=== PATIENT | female | born 1980 | race Asian ===

== ENCOUNTER → 2018-07-05 | Outpatient (CLI) | END | disposition home or self-care (01) ==

== ENCOUNTER 2018-10-07 05:19 | Inpatient (IN) | payer OTHER ==
[2018-09-27 15:56] VITALS: BMI 25.6
[~2018-10-07] VITALS: Ht 154.9 cm; Wt 61.6 kg
[2018-10-07] VITALS (31 sets, daily range): BP systolic 73–106; BP diastolic 41–58; PULSE 62–77; RESP 16–25; Ht 154.9 cm; Wt 61.6 kg
[~2018-10-07 05:19] MED LIST: BUPIVACAINE 0.5% (SDV) 30 ML, morphine SULFATE (PF) 8 MG, EPINEPHrine 0.3 MG, KETOROLAC... IRR SCH
--- NOTE | 2018-10-07 05:54 | HPN ---
Date/Time of Note Date/Time of Note DATE: 10/07/18 TIME: 05:54 Interval H&P Admission Note Pt. seen H&P reviewed: No system changes AMANDA SOLARES MD Oct 07, 2018 05:54
--- NOTE | 2018-10-07 05:56 | OPR ---
Date/Time of Note Date/Time of Note DATE: 10/07/18 TIME: 05:54 Operative Report Procedure Date: Oct 07, 2018 Preoperative Diagnosis Left hip primary arthritis Postoperative Diagnosis Left hip primary arthritis Operation/Procedure Performed 1. Left total hip arthroplasty 2. Injection of PRP Surgeon see signature line Owner/Operator Krishan Kelley PA-C Second Owner/Operator: ZARIA BRISCOE Anesthesia Type: general Estimated Blood Loss: 150 - 200 ml's Transfusion none Specimen none Grafts/Implants none Complications none Pt Condition Post Procedure: stable Disposition: PACU Procedure Description Owner/Operator Surgeon: Mr Kelley was integral to the positioning and assistance necessary in the exposure of the hip joint as well as protection of the neurovascular structures. In my opinion at the assistance offered by a surgical services director is insufficient and Mr. Loera should be compensated for his time. PROCEDURE IN DETAIL: Following the administration of general endotracheal anesthesia supplemented with a spinal anesthetic, the patient was placed in the supine position. The antecubital fossa on the right was prepped and 60 cc of blood were aspirated. Under sterile conditions, the blood was passed off to the claim representative from the company who prepared the PRP solution. The left lower extremity was then prepped and draped in the usual sterile fashion. A mold chipper radiograph was obtained for preliminary limb length and femoral size as well as acetabular size. A lateral incision was then made exposing the tensor fascia the fascia was incised the tensor was retracted laterally and the vessels were cauterized. The anterior capsule was then identified and prepared. A capsulectomy was then performed and the femoral head was then evaluated. Severe arthritic changes were noted. A femoral head cut was then made in the appropriate degree of version and inclination. Following dislocation, severe arthritic changes were noted with very certain severe cystic changes in the femoral head. The acetabulum was then exposed and a capsulectomy and labrectomy were completed. The central portion was then entered and serially reamed up to the 47 mm size. A Depuy [place] cup which was 48 mm, with a standard liner was then fit into position with solid fixation. A 30 mm screw was used for additional fixation. Attention was then directed to the femur, the femur was exposed and prepared. The canal was entered and serially reamed up to the size 3. The femoral canal was then thoroughly irrigated and the PRP solution was then instilled into the femoral canal. A size 3 Depuy Actis stem was then inserted with solid fixation. A 28 mm, +1.5 mm femoral head, which was ceramic was then inserted. The leg was taken through full range of motion with no evident instability. In addition, radiographs revealed excellent position with reproduction of the limb lengths within a millimeter. The wound was irrigated thoroughly. The wound was then closed in layers and a Prenio for the final cover. This was watertight. Estimated blood loss was procedure was 200 cc. Postoperative radiographs will be obtained in the recovery room. AMANDA SOLARES MD Oct 07, 2018 05:56
[2018-10-07] MEDS ORDERED: DEXAMETHASONE 1 MG TAB PO ONE (06:00)
[2018-10-07] MEDS ORDERED: CEFAZOLIN 2 GM/50 ML (PMX) 50 ML IVPB ONE (06:00)
[2018-10-07] MEDS ORDERED: TRANEXAMIC ACID 1GM/100ML(PMX) 100 ML IVPB ONE (06:00)
[2018-10-07] MEDS ORDERED: GABAPENTIN 300 MG CAP PO ONE (06:00)
[2018-10-07] MEDS ORDERED: LACTATED RINGER'S 1,000 ML IV SCH (06:30)
--- NOTE | 2018-10-07 06:34 | PREAC ---
Date/Time of Note Date/Time of Note DATE: 10/07/18 TIME: 06:34 Anesthesia Eval and Record Evaluation Time Pre-Procedure Interview DATE: 10/07/18 TIME: 06:34 Age 38 Sex female NPO: 8 hrs Preoperative diagnosis L Hip OA Planned procedure L THR Past Medical History Past Medical History: None Surgery & Anesthesia Issues No known issue Meds Anticoagulation: No Beta Leon within 24 hr: No Reason Beta Leon not given: Pt. not on B-Leon No Active Prescriptions or Reported Meds Current Medications Sodium Chloride/ Tranexamic Acid INTRA-OP ONCE IRR ; Start 10/07/18 at 07:00; Stop 10/07/18 at 07:01 Bupivacaine HCl/ Morphine Sulfate/ Epinephrine/ Ketorolac Tromethamine/ C lonidine/Sodium Chloride/ Vancomycin HCl INTRA-OP IRR ; Start 10/06/18 at 06:30; Status UNV Lactated Ringer's 1,000 ml @ 30 mls/hr Q24H IV ; Start 10/07/18 at 06:30 Meds reviewed: Yes Allergies Coded Allergies: aspirin (Verified Allergy, Severe, EYE LID EDEMA, 10/07/18) Sulfa (Sulfonamide Antibiotics) (Verified Allergy, Intermediate, rash, 10/07/18) sulfamethoxazole (Verified Allergy, Mild, rash, 10/07/18) trimethoprim (Verified Allergy, Mild, rash, 10/07/18) Allergies Reviewed: Yes Labs/Studies Labs Reviewed: Reviewed by anesthesiologist test: Negative Pre-procedure Exam Last vitals Vital Signs Date Temp Pulse Resp B/P (MAP) Pulse Ox O2 O2 Flow FiO2 Time Delivery Rate 10/07/18 98.3 77 18 104/57 98 Room Air 06:06 (73) Airway: Adequate mouth opening, Adequate thyromental dist Mallampati: Mallampati II Teeth: Normal Lung: Normal Heart: Normal ASA Physical Status ASA physical status: 2 Emergency: None Planned Anesthetic General/MAC: ETT Neuraxial: Spinal Planned Pain Management Sub-arachniod narcotics Pre-operative Attestations Prior to commencing anesthesia and surgery, the patient was re-evaluated, there was verification of: *The patient's identity *The results of appropriate recent lab work and preoperative vital signs *The above evaluation not changing prior to induction *Anesthetic plan, risk benefits, alternative and complications discussed with patient/family; questions answered; patient/family understands, accepts and wishes to proceed. TYLER LEBRON Oct 07, 2018 06:34
[2018-10-07] MEDS ORDERED: morphine SULFATE/PF (10 MG/10 ML) INJ ONE (06:45)
[2018-10-07] MEDS ORDERED: MIDAZOLAM 1 MG/ML 2 ML INJ ONE (06:45)
[2018-10-07] MEDS ORDERED: ONDANSETRON 4 MG INJ IV PRN (07:00)
[2018-10-07] MEDS ORDERED: MEPERIDINE 25 MG INJ IV PRN (07:00)
[2018-10-07] MEDS ORDERED: HYDROmorphONE 1 MG/5 ML IV SYRINGE IV PRN ×3 (07:00)
[2018-10-07] MEDS ORDERED: DESFLURANE 15 MIN ONE (07:00)
[2018-10-07] MEDS ORDERED: ROCURONIUM 50 MG INJ ONE ×2 (07:00→07:39)
[2018-10-07] MEDS ORDERED: METOCLOPRAMIDE 10 MG INJ IV PRN (07:00)
[2018-10-07] MEDS ORDERED: CEFAZOLIN 1 GM INJ ONE (07:00)
[2018-10-07] MEDS ORDERED: DIPHENHYDRAMINE 50 MG INJ IV PRN ×2 (07:00→09:00)
[2018-10-07] MEDS ORDERED: ALBUTEROL 0.083% (NEB) 2.5 MG/3 ML AMP HHN PRN (07:00)
[2018-10-07] MEDS ORDERED: FENTAnyl 50 MCG/ML VIAL IV PRN ×2 (07:00)
[2018-10-07] MEDS ORDERED: SOD CHLORIDE 0.9% 100 ML, TRANEXAMIC ACID 3,000 MG IRR ONE ×2 (07:00)
[2018-10-07] MEDS ORDERED: TRANEXAMIC ACID 1GM/100ML(PMX) 100 ML ONE ×2 (07:24→07:39)
[2018-10-07] MEDS ORDERED: PHENYLephrine (100 MCG/ML) 10ML SYG ONE (07:27)
[2018-10-07] MEDS ORDERED: POLYMYXIN/BACITRACIN 1L IRRIG ONE (07:32)
[2018-10-07] MEDS ORDERED: CA CHLORIDE 10% 10 ML SYRINGE ONE (07:32)
[2018-10-07] MEDS ORDERED: THROMBIN 5000 UNIT VIAL ONE (07:32)
[2018-10-07] MEDS ORDERED: LIDOCAINE 100 MG SYRINGE ONE (07:39)
[2018-10-07] MEDS ORDERED: PROPOFOL 20 ML ONE (07:39)
[2018-10-07] MEDS ORDERED: SUCCINYLCHOLINE CHLORIDE 100 MG/5 ML SYG IV ONE (07:39)
[2018-10-07] MEDS: LACTATED RINGER'S 1,000 ML IV SCH ×4 (08:45→22:38)
[2018-10-07] MEDS ORDERED: NEOSTIGMINE 3 MG/3 ML SYRINGE ONE (08:50)
[2018-10-07] MEDS ORDERED: GLYCOPYRROLATE 0.4 MG INJ ONE (08:50)
[2018-10-07] MEDS ORDERED: MAGNESIUM HYDROXIDE 30ML CUP PO PRN (09:00)
[2018-10-07] MEDS ORDERED: NACL 0.9% 3 ML SYG IV SCH (09:00)
[2018-10-07] MEDS ORDERED: ZOLPIDEM 5 MG TAB PO PRN (09:00)
[2018-10-07] MEDS ORDERED: CEFAZOLIN 1 GM/50 ML (PMX) 50 ML IVPB ONE (09:33)
[2018-10-07] MEDS ORDERED: BUPIVACAINE 0.5% (SDV) 30 ML, morphine SULFATE (PF) 8 MG, EPINEPHrine 0.3 MG, CLONIDINE... IRR SCH ×6 (10:00)
[2018-10-07] MEDS: ACETAMINOPHEN 1000MG/100ML IV 100 ML IVPB SCH ×2 (10:58→17:05)
[2018-10-07] MEDS: SENNA/DOCUSATE NA (8.6MG/50MG) TAB PO SCH ×2 (10:58→20:46)
[2018-10-07] MEDS: DEXAMETHASONE 2 MG TAB PO SCH ×2 (11:46→17:05)
[2018-10-07] MEDS ORDERED: HYDROmorphONE 1 MG/ML SYG IV PRN (12:00)
[2018-10-07] MEDS ORDERED: oxyCODONE 5 MG TAB PO PRN ×2 (12:00)
[2018-10-07] MEDS: ONDANSETRON 4 MG INJ IV PRN ×2 (14:33→20:45)
[2018-10-07] MEDS: CEFAZOLIN 1 GM/50 ML (PMX) 50 ML IVPB SCH (17:05)
--- NOTE | 2018-10-07 18:06 | PDOCDIS ---
Discharge Instructions DIAGNOSIS Discharge Diagnosis HIp arthritis CONDITION [id number] Patient Condition: [id number] Good HOME CARE INSTRUCTIONS: [id number] Diet Instructions: [id number] Regular ACTIVITY: [id number] Activity Restrictions: [id number] Rest between Activity Keep Limb Elevated [id number] Bathing Restrictions: [id number] Shower FOLLOW UP/APPOINTMENTS Follow-up Plan 2 weeks SCHOOL/WORK RELEASE May return to School/Work with: With Restrictions School/Work Release Comment: No hip extension for three months AMANDA SOLARES MD Oct 07, 2018 18:06
--- NOTE | 2018-10-07 18:57 | PAC ---
Date/Time of Note Date/Time of Note DATE: 10/07/18 TIME: 18:57 Post-Anesthesia Notes Post-Anesthesia Note Last documented vital signs Vital Signs Date Temp Pulse Resp B/P (MAP) Pulse Ox O2 O2 Flow FiO2 Time Delivery Rate 10/07/18 98.2 66 18 96/53 (67) 99 Room Air 14:30 Activity: WNL Respiratory function: WNL Cardiovascular function: WNL Mental status: Baseline Pain reasonably controlled: Yes Hydration appropriate: Yes Nausea/Vomiting absent: Yes TYLER LEBRON Oct 07, 2018 18:57
[2018-10-07] MEDS ORDERED: GABAPENTIN 300 MG CAP PO SCH (21:00)
[2018-10-07] MEDS: oxyCODONE 5 MG TAB PO PRN (22:38)
[2018-10-08] VITALS: BP 91/54; PULSE 71; RESP 20
[2018-10-08] MEDS: CEFAZOLIN 1 GM/50 ML (PMX) 50 ML IVPB SCH ×2 (00:27→08:34)
[2018-10-08] MEDS: DEXAMETHASONE 2 MG TAB PO SCH ×2 (00:27→06:03)
[2018-10-08] MEDS: ACETAMINOPHEN 1000MG/100ML IV 100 ML IVPB SCH (00:28)
[2018-10-08 05:00] VITALS: BP 107/56; PULSE 65; RESP 18
[2018-10-08] MEDS: oxyCODONE 5 MG TAB PO PRN (06:03)
[2018-10-08] MEDS: ONDANSETRON 4 MG INJ IV PRN (06:08)
--- NOTE | 2018-10-08 06:15 | DS ---
Date/Time of Note Date/Time of Note DATE: 10/08/18 TIME: 06:15 Discharge Summary Admission/Discharge Info Admit Date/Time Oct 07, 2018 at 05:19 Discharge Date/Time 10/08/2018 Discharge Diagnosis HIp arthritis Patient Condition: Good Hospital Course Admitted and underwent uncomplicated procedure. Postop day 1 she is afebrile stable discharge home after PT Home Meds No Active Prescriptions or Reported Meds Follow-up Plan 2 weeks Primary Care Provider Not On Staff Doctor Pending Labs Laboratory Tests Test 10/07/18 09:18 10/08/18 04:42 White Blood Count 13.7 10^3/ul (4.8-10.8) 14.1 10^3/ul (4.8-10.8) Red Blood Count 3.90 10^6/ul (4.20-5.40) 3.17 10^6/ul (4.20-5.40) Hemoglobin 11.6 g/dl (12.0-16.0) 9.5 g/dl (12.0-16.0) Hematocrit 37.2 % (37.0-47.0) 29.2 % (37.0-47.0) Mean Corpuscular Volume 95.4 fl (82.0-101.0) 92.1 fl (82.0-101.0) Mean Corpuscular 29.7 pg (29.0-33.0) 30.0 pg (29.0-33.0) Hemoglobin Mean Corpuscular 31.2 g/dl (32.0-37.0) 32.5 g/dl (32.0-37.0) Hemoglobin Concent Red Cell Distribution 13.4 % (11.5-14.5) 13.4 % (11.5-14.5) Width Platelet Count 351 10^3/UL (140-415) 292 10^3/UL (140-415) Mean Platelet Volume 9.1 fl (7.4-10.4) 9.7 fl (7.4-10.4) Immature Granulocytes % 1.300 % (0.001-0.429) 0.400 % (0.001-0.429) Neutrophils % 84.0 % (39.0-77.0) 83.5 % (39.0-77.0) Lymphocytes % 11.8 % (15.0-51.0) 8.4 % (15.0-51.0) Monocytes % 2.3 % (0.0-11.0) 7.5 % (0.0-11.0) Eosinophils % 0.1 % (0.0-7.0) 0.0 % (0.0-7.0) Basophils % 0.5 % (0.0-2.0) 0.2 % (0.0-2.0) Nucleated Red Blood Cells 0.0 /100WBC (0.0-0.0) 0.0 /100WBC (0.0-0.0) % Immature Granulocytes # 0.180 10^3/ul (0.0-0.031) 0.050 10^3/ul (0.0-0.031) Neutrophils # 11.5 10^3/ul (1.6-7.5) 11.7 10^3/ul (1.6-7.5) Lymphocytes # 1.6 10^3/ul (0.8-2.9) 1.2 10^3/ul (0.8-2.9) Monocytes # 0.3 10^3/ul (0.3-0.9) 1.1 10^3/ul (0.3-0.9) Eosinophils # 0.0 10^3/ul (0.0-0.5) 0.0 10^3/ul (0.0-0.5) Basophils # 0.1 10^3/ul (0.0-0.1) 0.0 10^3/ul (0.0-0.1) Nucleated Red Blood Cells 0.0 10^3/ul (0.0-0.0) 0.0 10^3/ul (0.0-0.0) # CBC Results Faxed/Phoned 1 AMANDA SOLARES MD Oct 08, 2018 06:15
--- NOTE | 2018-10-08 06:15 | PN ---
Date/Time of Note Date/Time of Note DATE: 10/08/18 TIME: 06:14 Subjective Awake and alert. No complaints. Objective Vitals Vital Signs Date Temp Pulse Resp B/P (MAP) Pulse Ox O2 O2 Flow FiO2 Time Delivery Rate 10/08/18 98.0 71 20 91/54 (66) 97 Room Air 00:00 Intake and Output 10/07/18 10/07/18 10/08/18 1515:00 23:00 07:00 IntakeIntake Total 2700 ml 1300 ml 300 ml OutputOutput Total 600 ml 2100 ml 1500 ml BalanceBalance 2100 ml -800 ml -1200 ml Wound is clean and dry. Neurologically intact. No signs of DVT. Results Result Diagram: 10/08/18 0442 Medications Medications Current Medications Lactated Ringer's 1,000 ml @ 100 mls/hr Q10H IV Last administered on 10/07/18at 22:38; Admin Dose 100 MLS/HR; Start 10/07/18 at 08:45 Cefazolin Sodium 50 ml @ 100 mls/hr Q8H IVPB Last administered on 10/08/18at 00:27; Admin Dose 100 MLS/HR; Start 10/07/18 at 16:00; Stop 10/08/18 at 08:29 Senna/Docusate Sodium (Senokot-S) 1 tab BID PO Last administered on 10/07/18at 20:46; Admin Dose 1 TAB; Start 10/07/18 at 09:00 Simethicone (Mylicon) 80 mg TID PRN PO .GAS; Start 10/07/18 at 09:00 Magnesium Hydroxide (Milk Of Mag) 30 ml BID PRN PO .CONSTIPATION; Start 10/07/18 at 09:00 Magnesium Hydroxide (Milk Of Mag) 30 ml HS PO ; Start 10/09/18 at 21:00 Gabapentin (Neurontin) 300 mg HS PO Last administered on 10/07/18at 20:46; Admin Dose 300 MG; Start 10/07/18 at 21:00 Oxycodone HCl (Roxicodone) 15 mg Q4H PRN PO .PAIN; Start 10/07/18 at 12:00 Oxycodone HCl (Roxicodone) 10 mg Q4H PRN PO .PAIN Last administered on 10/08/18at 06:03; Admin Dose 10 MG; Start 10/07/18 at 12:00 Oxycodone HCl (Roxicodone) 5 mg Q4H PRN PO .PAIN; Start 10/07/18 at 12:00 Hydromorphone HCl (Dilaudid) 1 mg Q4H PRN IV .BREAKTHROUGH PAIN; Start 10/07/18 at 12:00 Ondansetron HCl (Zofran Inj) 4 mg Q6H PRN IV NAUSEA/VOMITING Last administered on 10/08/18at 06:08; Admin Dose 4 MG; Start 10/07/18 at 09:00 Diphenhydramine HCl (Benadryl) 25 mg Q6H PRN IV .PRURITUS; Start 10/07/18 at 09:00 Zolpidem Tartrate (Ambien) 10 mg HS PRN PO .INSOMNIA; Start 10/07/18 at 09:00 IV Flush (NS 3 ml) 3 ml per protocol IV ; Start 10/07/18 at 09:00 Bupivacaine HCl/ Morphine Sulfate/ Epinephrine/ Clonidine/Sodium Chloride/ Vancomycin HCl INTRA-OP IRR ; Start 10/07/18 at 10:00 VTE Prophylaxis Risk score (from Nsg)>0 risk: 7 SCD applied (from Nsg): Yes Lines/Catheters IV Catheter Type: Saline Lock Krishnan in Place: No Assessment/Plan Assessment/Plan Assessment: Status post total hip replacement Plan: Begin PT this morning discharge after cleared AMANDA SOLARES MD Oct 08, 2018 06:15
[2018-10-08 08:23] VITALS: BP 102/55; PULSE 87; RESP 18
[2018-10-08 08:25] VITALS: BP 102/55; PULSE 87; RESP 18
[2018-10-08] MEDS: SENNA/DOCUSATE NA (8.6MG/50MG) TAB PO SCH (08:34)
[2018-10-08] MEDS ORDERED: ACETAMINOPHEN 325 MG TAB PO PRN (09:00)
[2018-10-09] MEDS ORDERED: MAGNESIUM HYDROXIDE 30ML CUP PO SCH (21:00)
== END 2018-10-08 13:44 | disposition home or self-care (01) | DRG 470 ==
LOC: REC 05:19 → MS1 10:37
PROVIDERS: ADMIT Orthopaedic Surgery; ATTEND Orthopaedic Surgery
PROC: 0SRB04A Replacement of Left Hip Joint with Ceramic on Polyethylene Synthetic Substitute, Uncemented, Open Approach (ICD-10-PCS; principal; 2018-10-07 07:00)
DX: M16.12 Unilateral primary osteoarthritis, left hip (principal)
CPT/HCPCS: 72170; 73530; 84703; 85025; 86999; 88304; 88311; 97161; C1713; C1776; J0131; J0171; J0690; J0735; J2001; J2250; J2274; J2370; J2405; J2710; J3370; J7120